=== PATIENT | male | born 1945 | race Caucasian/White ===

== ENCOUNTER → 2024-10-02 11:34 | Outpatient (REF) | payer OTHER, SELFPAY | LOC: HWRAD 11:34 | PROVIDERS: ATTENDING PHYSICIAN Nurse Practitioner Family | DX: M25.552 Pain in left hip (principal) | CPT/HCPCS: 73502 ==

== ENCOUNTER → 2025-03-08 08:52 | Outpatient (REF) | payer OTHER, SELFPAY | LOC: HWRCS 08:52 | PROVIDERS: ATTENDING PHYSICIAN Nurse Practitioner Family | DX: R01.1 Cardiac murmur, unspecified (principal) | CPT/HCPCS: 93306 ==